=== PATIENT | female | born 1990 | race Two or more races ===

== ENCOUNTER 2022-05-13 09:43 | Outpatient (CLI) | payer OTHER | END 2022-05-13 12:35 | disposition home or self-care (01) | LOC: PRENATAL 09:43 | PROVIDERS: ATTEND Obstetrics & Gynecology Maternal & Fetal Medicine | DX: O35.9XX0 Maternal care for (suspected) fetal abnormality and damage, unspecified, not applicable or unspecified (principal); O35.3XX0 Maternal care for (suspected) damage to fetus from viral disease in mother, not applicable or unspecified; Z3A.20 20 weeks gestation of pregnancy ==

== ENCOUNTER 2022-09-08 14:30 | Inpatient (IN) | payer OTHER ==
[~2022-09-08] VITALS: Ht 157.5 cm; Wt 2.7 kg
[2022-09-22] MEDS ORDERED: PRENATAL 19 TA1 EAC2 PO (06:47)
[2022-09-22] MEDS ORDERED: FOLIC ACID0.8 M1 PO (06:47)
[2022-09-22] MEDS ORDERED: PEPCID AC20 MG PO (06:51)
== END 2022-09-25 13:17 | disposition home or self-care (01) | DRG 788 ==
LOC: LDR 09-22 06:19 → OB/GYN 09-22 06:19 → O/R 09-22 21:29 → OB/GYN 09-22 22:50
PROVIDERS: ADMIT Obstetrics & Gynecology; ATTEND Obstetrics & Gynecology
PROC: 3E033VJ Introduction of Other Hormone into Peripheral Vein, Percutaneous Approach (ICD-10-PCS; 2022-09-22)
PROC: 3E0P7VZ Introduction of Hormone into Female Reproductive, Via Natural or Artificial Opening (ICD-10-PCS; 2022-09-22)
PROC: 4A1HXCZ Monitoring of Products of Conception, Cardiac Rate, External Approach (ICD-10-PCS; 2022-09-22)
PROC: 10D00Z1 Extraction of Products of Conception, Low, Open Approach (ICD-10-PCS; principal; 2022-09-22 20:00)
DX: O33.8 Maternal care for disproportion of other origin (principal); Z3A.39 39 weeks gestation of pregnancy; Z37.0 Single live birth; Z20.822 Contact with and (suspected) exposure to COVID-19